=== PATIENT | female | born 1975 | race Caucasian/White ===

== ENCOUNTER 2024-05-11 12:29 | Emergency (ER) | payer MEDICAID ==
[~2024-05-11] VITALS: Ht 165.1 cm; Wt 68.9 kg
[2024-05-11 12:44] VITALS: BP_SYST 133; PULSE 78; RESP 17; TEMP 97.8; O2SAT 100
[2024-05-11] MEDS: KETOROLAC TROMETHAMINE 60 MG/2 ML VIAL IM ONE (13:35)
[2024-05-11 13:38] LABS: EOSINOPHILS # (AUTO) 0.1 K/uL (0.0-0.4); EOSINOPHILS % (AUTO) 2.8 % (0.0-4.0); HEMATOCRIT 37.3 % (36-48); HEMOGLOBIN 12.4 g/dL (12.0-16.0); LYMPHOCYTES # (AUTO) 1.4 K/uL (1.0-5.5); LYMPHOCYTES % (AUTO) 29.1 % (20.5-51.5); MEAN CORPUSCULAR HEMOGLOBIN 30 pg (27-31); MEAN CORPUSCULAR HGB CONC 33 % (32-36); MEAN CORPUSCULAR VOLUME 91 fL (79.0-98.0); MONOCYTES # (AUTO) 0.5 K/uL (0.0-1.0); MONOCYTES % (AUTO) 9.6 % (1.7-9.3); NEUTROPHILS # (AUTO) 2.8 K/uL (1.8-7.7); NEUTROPHILS % (AUTO) 57.5 % (40.0-70.0); PLATELET COUNT (AUTO) 346 K/uL (130-430); RED CELL DISTRIBUTION WIDTH 12.6 % (9.0-15.0)
[2024-05-11 13:49] LABS: CALCIUM 8.4 mg/dL (8.4-11.0); CREATININE 0.82 mg/dL (0.55-1.30); POTASSIUM 3.8 mmol/L (3.5-5.1)
[2024-05-11 14:33] LABS: BILIRUBIN,URINE NEGATIVE (NEGATIVE); CLARITY/URINE CLEAR (CLEAR); COLOR,URINE YELLOW (YELLOW); GLUCOSE,URINE NEGATIVE (NEGATIVE); KETONES,URINE NEGATIVE (NEGATIVE); LEUKOCYTE ESTERASE ,URINE NEGATIVE (NEGATIVE); NITRITE, URINE NEGATIVE (NEGATIVE); PROTEIN URINE NEGATIVE (NEGATIVE); UROBILINOGEN,URINE 0.2 (0.2-1.0)
[2024-05-11 14:35] LABS: BLOOD, URINE TRACE (NEGATIVE)
[2024-05-11 14:52] VITALS: BP_SYST 133; PULSE 78; RESP 17; TEMP 97.8; O2SAT 100
[2024-05-11 14:52] LABS: BACTERIA,URINE None Seen /HPF (None Seen); MUCUS,URINE 1+ /LPF (None Seen); WBC,URINE 0-3 /HPF (0-3)
== END 2024-05-11 14:52 | disposition home or self-care (01) ==
LOC: SED 12:29
DX: R31.9 Hematuria, unspecified (principal); R53.1 Weakness; R10.30 Lower abdominal pain, unspecified; M54.50 Low back pain, unspecified; F41.9 Anxiety disorder, unspecified; Z85.9 Personal history of malignant neoplasm, unspecified; Z88.5 Allergy status to narcotic agent; Z88.6 Allergy status to analgesic agent
CPT/HCPCS: 99283; 80048; 81001; 85025; 36415; 96372; J1885; 81000; 81015